=== PATIENT | male | born 1975 | race Caucasian/White ===

== ENCOUNTER 2018-10-03 17:19 | Emergency (ER) | payer OTHER ==
[~2018-10-03] VITALS: Ht 180.3 cm; Wt 110.2 kg
[2018-10-03 17:25] VITALS: BP_SYST 196
--- NOTE | 2018-10-03 17:30 | NUR ---
Patient to ER bed 4 to gown for evaluation. Side rails up. Report given to Dinae TORRES.
--- NOTE | 2018-10-03 17:35 | NUR ---
ER at bedside examining patient.
--- NOTE | 2018-10-03 17:40 | NUR ---
PT PRESENTS TO ED C/O L ARM, L SHOULDER AND JAW PAIN WORSENING SINCE APPROX 1030 THIS AM. PT REPORTS H/O TIA AND HTN. PT ADMITS TO SMOKING 1 PK A DAY. PT HAS EQUAL PUSHES AND PULLS UPON ASSESSMENT WHILE FACIAL SYMMETRY.PT SPEAKING IN COMPLETE SENTENCES AND DENIES DIFFUCULTY FORMING OR EXPRESSING THOUGHTS.PT PLACED ON CONDUCTOR/ENGINEER. EKG DONE. NOTED BP 196/97
[2018-10-03 18:43] LABS: ANION GAP 8 (5-15); CALCIUM 8.9 mg/dL (8.4-11.0); CHLORIDE 102 mmol/L (98-107); CREATININE 0.65 mg/dL (0.55-1.30); GLUCOSE 96 mg/dL (70-99); POTASSIUM 3.9 mmol/L (3.5-5.1); SODIUM SERUM 135 mmol/L (136-145); UREA NITROGEN, BLOOD 12 mg/dL (8-21)
[2018-10-03 18:44] LABS: GFR AFRICAN AMERICAN 172 mL/min (>90)
[2018-10-03 18:45] LABS: INR 1.1 (0.80-1.20); PROTHROMBIN TIME 10.8 SECS (9.5-12.5)
[2018-10-03] MEDS ORDERED: ASPIRIN 325 MG TABLET PO ONE (18:45)
[2018-10-03 18:47] LABS: ALANINE AMINOTRANSFERASE 138 U/L (12-78); ALBUMIN 3.9 g/dL (3.4-4.8); ASPARTATE AMINOTRANSFERASE 65 U/L (10-37); TOTAL BILIRUBIN 0.7 mg/dL (0.0-1.0)
[2018-10-03 18:50] LABS: ALCOHOL, BLOOD < 3 mg/dL (<10)
--- NOTE | 2018-10-03 18:50 | NUR ---
Patient presented to the ER with Left arm and left side jaw pain 03/24. Patient ambulatory to the ER. arrived to ER with . Patient states pain to jaw and left arm 8 started this morning. Patient states he was getting ready for work, he works medical technicians and he decided the pain was not going away so he came to the ER.
[2018-10-03 19:01] LABS: HEMATOCRIT 46.7 % (36-54); HEMOGLOBIN 15.6 g/dL (14.0-18.0); MEAN CORPUSCULAR HEMOGLOBIN 30 pg (27-31); MEAN CORPUSCULAR HGB CONC 34 % (32-36); MEAN CORPUSCULAR VOLUME 90 fL (79.0-98.0); PLATELET COUNT (AUTO) 245 K/uL (130-430); RED BLOOD CELL COUNT(AUTO) 5.19 MIL/uL (4.2-6.2); RED CELL DISTRIBUTION WIDTH 14.1 % (9.0-15.0); WHITE BLOOD COUNT (AUTO) 6.7 K/uL (4.8-10.8)
[2018-10-03 19:02] LABS: BASOPHILS % (AUTO) 0.3 % (0.0-2.0); EOSINOPHILS # (AUTO) 0.1 K/uL (0.0-0.4); LYMPHOCYTES # (AUTO) 1.4 K/uL (1.0-5.5); LYMPHOCYTES % (AUTO) 21.4 % (20.5-51.5); MONOCYTES # (AUTO) 0.4 K/uL (0.0-1.0); MONOCYTES % (AUTO) 6.2 % (1.7-9.3); NEUTROPHILS # (AUTO) 4.7 K/uL (1.8-7.7); NEUTROPHILS % (AUTO) 70.1 % (40.0-70.0)
--- NOTE | 2018-10-03 19:20 | NUR ---
Report given to Marko TORRES
--- NOTE | 2018-10-03 19:45 | NUR ---
Patient to be transferred to [place] ER/CT. Is being transferred due to higher level of care. Receiving facility has accepting physician and available space. ER physician has signed transfer form. Patient or responsible alliance party has agreed to transfer and signed form. Patient belongings inventoried and will be sent with patient. Copy of nursing notes, lab reports, EKG, Physicians Orders and X-rays to be sent with patient. Report called to Dr. Hernandez at receiving facility. Receiving physician is Dr. Hernandez. [facility] ambulance service has been called for transfer. ETA is 10 - 15.
--- NOTE | 2018-10-03 19:45 | NUR ---
Report given to [facility] transport (Alfredo). Pt states "feeling alot better right now." SBP trended down from 190s to 160.
[2018-10-03 19:58] VITALS: BP_SYST 160
== END 2018-10-03 19:58 | disposition short-term general hospital (02) ==
LOC: SED 17:19
DX: I21.4 Non-ST elevation (NSTEMI) myocardial infarction (principal); I63.9 Cerebral infarction, unspecified
CPT/HCPCS: 36415; 70450; 71045; 80053; 85025; 84484; 85610; 85730; 93005; 99285; G0482